=== PATIENT | female | born 1965 | race Caucasian/White ===

== ENCOUNTER → 2024-09-09 08:30 | Outpatient (BNVA) | payer BC, MEDICAID, SELFPAY | PROVIDERS: PCP Nurse Practitioner Occupational Health; Visit Provider Orthopaedic Surgery | DX: M54.9 Dorsalgia, unspecified (principal); M54.2 Cervicalgia; M25.519 Pain in unspecified shoulder; S43.205A Unspecified dislocation of left sternoclavicular joint, initial encounter; R07.89 Other chest pain; X58.XXXA Exposure to other specified factors, initial encounter | CPT/HCPCS: 72050; 72072; 72110; 73030 ==

== ENCOUNTER 2024-09-12 06:58 | Outpatient (CLI) | payer BC, MEDICAID, SELFPAY ==
--- NOTE | 2024-09-12 07:15 | CT_ITS ---
WS: [id number] CT chest wo con [id number] REASON FOR EXAM: sternum pain IV CONTRAST ADMINISTERED: None. TOTAL EXAM DLP: 428.[address] scans at [facility] use at least one of these dose optimization techniques: automated exposure control; mA and/or kV adjustment per patient size (includes targeted exams where dose is matched to clinical indication); or iterative reconstruction. FINDINGS: Mild tortuosity and ectasia of the thoracic aorta without aneurysmal dilatation. Small mediastinal and hilar old reactive nodes. No mediastinal, hilar, or lung mass. No acute pulmonary parenchymal abnormality. No pleural abnormality. There is a comminuted fracture of the proximal head of the left clavicle. There are some displaced fragments anteriorly however the fragment of the clavicular head maintains relationship to the manubrium with slightly widened articulation. No fracture of the manubrium or sternum is identified and the first rib appears intact. Minimal degenerative spondylosis in the thoracic spine. Mild chronic appearing compression deformity of T10. CT/CT chest wo con [id number] IMPRESSION: No acute pulmonary parenchymal or pleural abnormality. Comminuted fracture of the proximal head of the clavicle without disruption of the clavicular manubrial joint. Mild widening of the joint space. The fracture is identifiable on the previous shoulder x-ray of 09/09/2024 but no t reported.
== END 2024-09-12 06:59 | disposition home or self-care (01) ==
LOC: RAD 06:59
PROVIDERS: PCP Nurse Practitioner Occupational Health; Visit Provider Orthopaedic Surgery
DX: S42.012A Anterior displaced fracture of sternal end of left clavicle, initial encounter for closed fracture (principal); X58.XXXA Exposure to other specified factors, initial encounter
CPT/HCPCS: 71250

== ENCOUNTER 2024-10-06 10:20 | Outpatient (CLI) | payer BC, MEDICAID, SELFPAY ==
--- NOTE | 2024-10-06 10:15 | MR_ITS ---
WS: [id number] MRI CERVICAL SPINE NONCONTRAST HISTORY: cervical pain post fall COMPARISON: None available. Technique: Multiplanar, multisequence noncontrast imaging of the cervical spine. Normal cervical alignment. Disc spaces are mildly narrowed. Mild osteophytosis. Signal within the cervical cord is normal. Visualized posterior fossa is unremarkable. Craniocervical junction, C1 and C2 relationship, odontoid process and soft tissues are normal. C2-C3: Normal. C3-C4: Small central disc protrusion. Mild facet arthritis. C4-C5: Mild osteophytic ridging with annular disc bulging and LEFT paracentral disc protrusion. Additional moderate disc osteophyte complex in the LEFT foramen. Small osteophyte RIGHT foramen. Mild RIGHT and moderate LEFT foraminal stenosis. C5-C6: Diffuse osteophytic ridging with disc bulging. Central disc protrusion. Small bilateral disc osteophyte complexes in the foramina. Mild effacement of CSF. Mild central with moderate bilateral foraminal stenosis. C6-C7: Mild diffuse osteophytic ridging. Shallow LEFT paracentral disc protrusion. Bilateral foraminal osteophytes. Mild central and bilateral foraminal stenosis. Mild facet arthritis. C7-T1: Mild narrowing of the foramina due to small osteophytes. No high-grade stenosis. Slightly greater narrowing on the LEFT. 10 mm RIGHT thyroid nodule. 6 mm nodule in the LEFT vallecula. MR/MR cervical spin wo con* [id number] IMPRESSION: 1. No cervical spine fracture. 2. C4-5: Moderate LEFT and mild RIGHT foraminal stenosis due to disc osteophyt e complexes and facet arthritis. Small LEFT paracentral disc protrusion. 3. C5-6: Small central disc protrusion. Mild central and moderate bilateral fo raminal stenosis due to disc osteophyte complexes. 4. C6-7: Mild central and bilateral foraminal stenosis. Shallow LEFT paracentr al disc protrusion. 5. 10 mm RIGHT thyroid nodule. This can be further evaluated by thyroid ultras ound. 6. 6 mm LEFT vallecular nodule. Recommend follow-up neck CT with IV contrast.
== END 2024-10-06 10:21 | disposition home or self-care (01) ==
LOC: RAD 10:22
PROVIDERS: Visit Provider Orthopaedic Surgery
DX: M48.02 Spinal stenosis, cervical region (principal); M50.221 Other cervical disc displacement at C4-C5 level; M25.78 Osteophyte, vertebrae; M47.812 Spondylosis without myelopathy or radiculopathy, cervical region; Z91.81 History of falling
CPT/HCPCS: 72141